=== PATIENT | male | born 1990 | race Two or more races ===

== ENCOUNTER 2016-08-28 20:46 | Emergency (ER) | payer OTHER ==
[~2016-08-28] VITALS: Ht 185.4 cm; Wt 108.4 kg
--- NOTE | 2016-08-28 20:50 | NUR ---
PT BIBRA TO ER BED 09. PT C/O LIGHTHEADEDNESS AND GENERALIZED WEAKNESS POST DONATING PLASMA. PT ALSO ADMITS TO USING "SPICE". PT IS AAO, VERBALLY RESPONSIVE. COOPERATIVE TO STAFF. VSS. VITALY LAMB.
--- NOTE | 2016-08-28 21:09 | NUR ---
DR HARMON AT BEDSIDE FOR EVAL.
[2016-08-28] MEDS ORDERED: IV NS 0.9% 1,000 ML ONE (21:13)
[2016-08-28] MEDS ORDERED: IV SET PRIMARY 1 EA INFUS.SET MC ONE (21:13)
--- NOTE | 2016-08-28 21:15 | NUR ---
Benny stout in [facility] - 08/28/16 at 2140 by [place] [employer]GER OF [employer] AT BEDSIDE FOR BLOOD DRAW.
--- NOTE | 2016-08-28 21:15 | NUR ---
IV LINE STARTED BLOOD DRAWN AND SENT TO LAB.
[2016-08-28 21:30] LABS: BASOPHILS % (AUTO) 0.4 % (0.0-2.0); EOSINOPHILS # (AUTO) 0.1 /CMM (0.0-0.7); EOSINOPHILS % (AUTO) 0.9 % (0.0-6.0); HEMATOCRIT 44 % (39-51); HEMOGLOBIN 14.6 g/dL (13.5-17.5); LYMPHOCYTES # (AUTO) 2.2 /CMM (0.8-4.8); LYMPHOCYTES % (AUTO) 34.4 % (20.0-44.0); MEAN CORPUSCULAR HEMOGLOBIN 30 PG (26.0-33.0); MEAN CORPUSCULAR HGB CONC 33 g/dl (31.0-36.0); MEAN CORPUSCULAR VOLUME 89 fL (80-96); MONOCYTES # (AUTO) 0.5 /CMM (0.1-1.30); MONOCYTES % (AUTO) 7.4 % (2.0-12.0); NEUTROPHILS # (AUTO) 3.7 /CMM (1.8-8.9); NEUTROPHILS % (AUTO) 56.9 % (43.0-81.0); PLATELET COUNT (AUTO) 215 /CMM (150-450); RDW COEFFICIENT OF VARIATION 13.2 (11.5-15.0); RED BLOOD CELL COUNT(AUTO) 4.94 MIL/uL (4.5-6.0); WHITE BLOOD COUNT (AUTO) 6.5 K/uL (4.3-11.0)
[2016-08-28] MEDS ORDERED: IV NS 0.9% 1,000 ML BAG IV ONE (21:30)
[2016-08-28 21:45] LABS: CREATININE 1.3 mg/dL (0.6-1.3); POTASSIUM 3.4 mmol/L (3.5-5.1)
[2016-08-28] MEDS ORDERED: ONDANSETRON HCL/PF 4 MG/2 ML VIAL ONE (22:23)
[2016-08-28] MEDS ORDERED: ONDANSETRON HCL/PF 4 MG/2 ML VIAL IV ONE (22:30)
--- NOTE | 2016-08-28 23:00 | NUR ---
Patient discharged to home in stable condition. Written and verbal after care instructions given. Patient verbalizes understanding of instruction.IV removed. Catheter intact and site benign. Pressure and 4x4 applied to site. No bleeding noted.
[2016-08-28 23:06] VITALS: BP 128/70
== END 2016-08-28 23:07 | disposition home or self-care (01) ==
LOC: ER 20:48
DX: R42 Dizziness and giddiness (principal); F31.9 Bipolar disorder, unspecified
CPT/HCPCS: 36415; 80048-TC; 85025-TC; A4606; J2405; J7030; Z7610